=== PATIENT | female | born 1960 | race Caucasian/White ===

== ENCOUNTER 2022-05-15 15:38 | Outpatient (CLI) | payer BC, SELFPAY ==
[2022-05-15 13:44] LABS: Albumin* 4.4 g/dL (3.3-5.0); Chloride* 102 mmol/L (96-114); Potassium* 4.1 mmol/L (3.6-5.1); Sodium* 140 mmol/L (135-149)
[2022-05-15 13:46] LABS: Cholesterol* 162 mg/dL (90-199)
[2022-05-15 13:47] LABS: Alanine Aminotransferase* 20 U/L (4-35); Alkaline Phosphatase* 72 U/L (40-150); Aspartate Amino Transferase* 23 U/L (12-35); Bilirubin Total* 0.5 mg/dL (0.1-1.5); Blood Urea Nitrogen* 27 mg/dL (7-30); Carbon Dioxide* 34 mmol/L (20-32); Creatinine* 0.8 mg/dL (0.5-1.5); Estimated Glomerular Filt Rate 84 ml/min; Glucose* 119 mg/dL (60-115); Total Protein* 6.9 g/dL (6.0-8.3); Triglycerides* 61 mg/dL (40-149)
[2022-05-15 13:48] LABS: Calcium* 9.6 mg/dL (8.4-10.6); HDL Cholesterol* 75 mg/dL (>=50); LDL Cholesterol Calculated 75 mg/dL (<100)
== END 2022-05-15 15:39 | disposition home or self-care (01) ==
PROVIDERS: PCP Physician Assistant Medical; Visit Provider Physician Assistant Medical
DX: E11.9 Type 2 diabetes mellitus without complications (principal); E78.5 Hyperlipidemia, unspecified; I10 Essential (primary) hypertension
CPT/HCPCS: 80053; 80061

== ENCOUNTER 2023-05-29 09:08 | Outpatient (CLI) | payer BC, SELFPAY | END 2023-05-29 09:09 | disposition home or self-care (01) | LOC: NFLDREF 05-30 11:29 | PROVIDERS: PCP Physician Assistant Medical; Referring Provider Physician Assistant Medical; Visit Provider Physician Assistant Medical | DX: I10 Essential (primary) hypertension (principal); E78.2 Mixed hyperlipidemia; E11.9 Type 2 diabetes mellitus without complications; F41.9 Anxiety disorder, unspecified; F32.A Depression, unspecified; G47.00 Insomnia, unspecified; G89.29 Other chronic pain | CPT/HCPCS: 80053; 80061; 82043; 82570 ==

== ENCOUNTER 2024-05-07 14:51 | Outpatient (CLI) | payer BC, SELFPAY | END 2024-05-07 14:52 | disposition home or self-care (01) | LOC: NFLDREF 05-08 11:42 | PROVIDERS: PCP Physician Assistant Medical; Referring Provider Physician Assistant Medical; Visit Provider Physician Assistant Medical | DX: E11.65 Type 2 diabetes mellitus with hyperglycemia (principal); E78.2 Mixed hyperlipidemia; I10 Essential (primary) hypertension; Z13.29 Encounter for screening for other suspected endocrine disorder | CPT/HCPCS: 80053; 80061; 82043; 82570; 84443 ==

== ENCOUNTER 2024-08-12 13:46 | Outpatient (CLI) | payer BC, SELFPAY ==
--- NOTE | 2024-08-12 14:00 | CRLHL7_ITS ---
For Patients: As a result of the Century Cures Act, medical imaging exams and procedure reports are released immediately into your electronic medical record. You may view this report before your referring provider. If you have questions, please contact your health care provider. BILATERAL SCREENING MAMMOGRAM WITH COMPUTER-AIDED DETECTION AND TOMOSYNTHESIS TECHNIQUE: CC and MLO views were obtained. These mammographic images have been obtained using full-field digital technique. These mammographic images were interpreted with the benefit of computer-aided detection. Breast Tomosynthesis was used in this interpretation. COMPARISON FILM: 05/09/21, 04/27/20, 08/31/17. FINDINGS: The breasts are almost entirely fatty. IMPRESSION: There is no radiographic evidence for malignancy. ASSESSMENT: BI-RADS Category 1: Negative RECOMMENDATION: Routine screening mammogram in 1 year. A lay language report of this examination will be provided to the patient. Nirav Lang M.D. Diagnostic Radiologist [email or web address] SP/Dictated by: Nirav Lang MD @ 08/13/2024 8:57:00 AM (Electronically Signed)
== END 2024-08-12 13:47 | disposition home or self-care (01) ==
LOC: MAMMO 13:47
PROVIDERS: PCP Physician Assistant Medical; Visit Provider Physician Assistant Medical
DX: Z12.31 Encounter for screening mammogram for malignant neoplasm of breast (principal)
CPT/HCPCS: 77063; 77067

== ENCOUNTER 2024-09-29 06:22 | Outpatient (CLI) | payer BC, SELFPAY ==
--- NOTE | 2024-09-29 08:04 | P.ANES_ITS ---
Anesthesia Charges Start Date/Time Anesthesia Start Date: 09/29/24 Anesthesia Start Time: 07:23 Stop Date/Time Anesthesia Stop Date: 09/29/24 Anesthesia Stop Time: 08:00 Coding CPT Codes CPT Codes: ANES LWR INTST NDSC NOS - [id number] ([id number]) P3 - PATIENT W/SEVERE SYS DISEASE, QX - PIT FURNACE OPERATOR SVC W/ MD MED DIRECTION, QK - CAD DETAILER 2-4 CNCRNT ANES PROC
--- NOTE | 2024-09-29 08:04 | W.ANESCHARGE ---
Anesthesia Charges Start Date/Time Anesthesia Start Date: 09/29/24 Anesthesia Start Time: 07:23 Stop Date/Time Anesthesia Stop Date: 09/29/24 Anesthesia Stop Time: 08:00 Coding CPT Codes CPT Codes: ANES LWR INTST NDSC NOS - [id number] ([id number]) P3 - PATIENT W/SEVERE SYS DISEASE, QX - COMMUNICATIONS INSTRUCTOR SVC W/ MD MED DIRECTION, QK - BALANCE CLERK 2-4 CNCRNT ANES PROC
--- NOTE | 2024-09-29 09:42 | P.ANES_ITS ---
Anesthesia Charges Start Date/Time Anesthesia Start Date: 09/29/24 Anesthesia Start Time: 07:23 Stop Date/Time Anesthesia Stop Date: 09/29/24 Anesthesia Stop Time: 08:00 Coding CPT Codes CPT Codes: ANES LWR INTST NDSC NOS - [id number] ([id number]) QK - FOIL CUTTER 2-4 CNCRNT ANES PROC, QX - PRACTICE LEAD SVC W/ MED DIRECTION, P3 - PATIENT W/SEVERE SYS DISEASE
--- NOTE | 2024-09-29 09:42 | W.ANESCHARGE ---
Anesthesia Charges Start Date/Time Anesthesia Start Date: 09/29/24 Anesthesia Start Time: 07:23 Stop Date/Time Anesthesia Stop Date: 09/29/24 Anesthesia Stop Time: 08:00 Coding CPT Codes CPT Codes: ANES LWR INTST NDSC NOS - [id number] ([id number]) QK - CUSTOMER ENGAGEMENT REPRESENTATIVE 2-4 CNCRNT ANES PROC, QX - HOMEBIRTH MIDWIFE SVC W/ MED DIRECTION, P3 - PATIENT W/SEVERE SYS DISEASE
== END 2024-09-29 06:23 | disposition home or self-care (01) ==
LOC: OP CLINIC 06:23
PROVIDERS: PCP Physician Assistant Medical; Visit Provider Surgery
DX: Z86.0100 Personal history of colon polyps, unspecified (principal); D12.2 Benign neoplasm of ascending colon; D12.8 Benign neoplasm of rectum; K64.8 Other hemorrhoids
CPT/HCPCS: 00811; 45385; 88305; J2704

== ENCOUNTER 2025-05-13 15:00 | Outpatient (CLI) | payer BC, SELFPAY | END 2025-05-13 15:01 | disposition home or self-care (01) | LOC: NFLDREF 05-18 10:51 | PROVIDERS: PCP Physician Assistant Medical; Referring Provider Physician Assistant Medical; Visit Provider Physician Assistant Medical | DX: Z00.00 Encounter for general adult medical examination without abnormal findings (principal); I10 Essential (primary) hypertension; E11.9 Type 2 diabetes mellitus without complications; E78.2 Mixed hyperlipidemia | CPT/HCPCS: 80053; 80061; 82043; 82570; 84443 ==